=== PATIENT | male | born 1970 | race Caucasian/White ===

== ENCOUNTER 2020-02-13 09:53 | Emergency (ER) | payer MEDICARE, MEDICAID ==
[~2020-02-13] VITALS: Ht 167.6 cm; Wt 55.0 kg
[2020-02-13 10:06] VITALS: BP 157/89
[2020-02-13] MEDS ORDERED: BACITRACIN ZINC OINT UDPKT TOP ONE (10:30)
[2020-02-13] MEDS ORDERED: TETANUS, DIPHTHERIA, PERTUSSIS VAC/PF 0.5ML (>7YR OLD) IM ONE (10:30)
== END 2020-02-13 11:12 | disposition home or self-care (01) ==
LOC: ER 09:53
DX: S01.111A Laceration without foreign body of right eyelid and periocular area, initial encounter (principal); W20.8XXA Other cause of strike by thrown, projected or falling object, initial encounter; Y93.89 Activity, other specified; Y92.018 Other place in single-family (private) house as the place of occurrence of the external cause; N18.6 End stage renal disease; Z99.2 Dependence on renal dialysis; Z23 Encounter for immunization
CPT/HCPCS: 90471; 90715; 99283

== ENCOUNTER 2020-02-18 15:35 | Emergency (ER) | payer MEDICARE, MEDICAID ==
[~2020-02-18] VITALS: Ht 170.2 cm; Wt 78.0 kg
[2020-02-18 16:59] LABS: BASOPHILS % 1.2 % (0.0-2.0); EOSINOPHILS % 5.6 % (0.0-5.0); HEMATOCRIT. 41.6 % (42.0-52.0); HEMOGLOBIN. 14.7 g/dL (14.0-18.0); LYMPHOCYTES % 18.1 % (20.0-50.0); MEAN CORPUSCULAR VOLUME 90.6 fL (80.0-94.0); MEAN PLATELET VOLUME 8.9 fl (7.4-10.4); MONOCYTES % 9.5 % (2.0-8.0); NEUTROPHILS % 65.6 % (40.0-76.0); PLATELET 157 x1000/uL (130-400); RED BLOOD CELL COUNT 4.59 mill/uL (4.7-6.1); RED CELL DISTRIBUTION WIDTH 13.9 % (11.6-14.6)
[2020-02-18 17:13] LABS: CHLORIDE 97 mEq/L (98-107)
[2020-02-18 19:37] VITALS: BP 165/96
== END 2020-02-18 19:39 | disposition home or self-care (01) ==
LOC: ER 15:35
DX: R60.0 Localized edema (principal); I12.0 Hypertensive chronic kidney disease with stage 5 chronic kidney disease or end stage renal disease; N18.6 End stage renal disease; Z99.2 Dependence on renal dialysis
CPT/HCPCS: 36415; 80053; 83605; 85025; 93005; 93922; 93971; 99285

== ENCOUNTER 2020-03-14 08:40 | Inpatient (IN) | payer MEDICARE, MEDICAID ==
[~2020-03-14] VITALS: Ht 167.6 cm; Wt 77.6 kg
[2020-03-14] MEDS ORDERED: SODIUM CHLORIDE 0.9% 500 ML IV ONE (09:00)
[2020-03-14 09:19] LABS: CHLORIDE 95 mEq/L (98-107)
[2020-03-14 09:23] LABS: BASOPHILS % 0.5 % (0.0-2.0); EOSINOPHILS % 3.2 % (0.0-5.0); HEMATOCRIT. 40.9 % (42.0-52.0); HEMOGLOBIN. 14.2 g/dL (14.0-18.0); LYMPHOCYTES % 12.3 % (20.0-50.0); MEAN CORPUSCULAR HEMOGLOBIN 30.9 pg (28.0-32.0); MEAN CORPUSCULAR VOLUME 88.6 fL (80.0-94.0); MONOCYTES % 9.7 % (2.0-8.0); NEUTROPHILS % 74.3 % (40.0-76.0); PLATELET 135 x1000/uL (130-400); RED BLOOD CELL COUNT 4.61 mill/uL (4.7-6.1); RED CELL DISTRIBUTION WIDTH 13.8 % (11.6-14.6)
[2020-03-14] MEDS ORDERED: LEVOFLOXACIN 750MG PREMIX 150 ML IV ONE (11:45)
[2020-03-14 12:45] VITALS: BP 169/105
[2020-03-14] MEDS ORDERED: IPRATROPIUM/ALBUTEROL 0.5-3(2.5)MG/3ML NEB HHN PRN (13:15)
[2020-03-14] MEDS ORDERED: ACETAMINOPHEN 325MG TABLET PO PRN (13:15)
[2020-03-14] MEDS ORDERED: ONDANSETRON HCL 4MG/2ML INJ IV PRN (13:15)
[2020-03-14] MEDS ORDERED: CLONIDINE 0.1MG TABLET PO PRN (13:15)
[2020-03-14] MEDS ORDERED: CALC667T6 MT (13:29)
[2020-03-14] MEDS ORDERED: NIFE-33 PO (13:29)
[2020-03-14] MEDS ORDERED: CARV12.545 PO (13:29)
[2020-03-14] MEDS: NICOTINE 7MG PATCH TD SCH (14:22)
[2020-03-14] MEDS: NIFEDIPINE XL 60MG TAB PO SCH (14:23)
[2020-03-14 16:00] VITALS: BP 172/106
[2020-03-14] MEDS: AZITHROMYCIN 500 MG TABLET PO SCH (16:45)
[2020-03-14] MEDS: LOSARTAN POTASSIUM 50 MG TABLET PO SCH (16:45)
[2020-03-14] MEDS ORDERED: CEFTRIAXONE 1,000 MG in DEXTROSE 5% WATER 50 ML IV SCH (17:00)
[2020-03-14] MEDS ORDERED: PNEUMOCOCCAL 23-VAL P-SAC VAC 0.5 ML IM ONE (19:00)
[2020-03-14 20:00] VITALS: BP 131/74
[2020-03-15] VITALS: BP 135/83
[2020-03-15] MEDS ORDERED: PNEUMOCOCCAL 23-VAL P-SAC VAC 0.5 ML IM ONE (01:00)
[2020-03-15 04:00] VITALS: BP 133/79
[2020-03-15 07:30] LABS: BASOPHILS % 0.8 % (0.0-2.0); EOSINOPHILS % 5.1 % (0.0-5.0); HEMATOCRIT. 34.4 % (42.0-52.0); HEMOGLOBIN. 12.1 g/dL (14.0-18.0); LYMPHOCYTES % 20.8 % (20.0-50.0); MEAN CORPUSCULAR VOLUME 87.8 fL (80.0-94.0); MEAN PLATELET VOLUME 7.8 fl (7.4-10.4); MONOCYTES % 11.4 % (2.0-8.0); NEUTROPHILS % 61.9 % (40.0-76.0); PLATELET 131 x1000/uL (130-400); RED BLOOD CELL COUNT 3.91 mill/uL (4.7-6.1); RED CELL DISTRIBUTION WIDTH 13.7 % (11.6-14.6)
[2020-03-15 08:00] VITALS: BP 140/87
[2020-03-15] MEDS: NICOTINE 7MG PATCH TD SCH (09:22)
[2020-03-15] MEDS: NIFEDIPINE XL 60MG TAB PO SCH (09:23)
[2020-03-15] MEDS: AZITHROMYCIN 500 MG TABLET PO SCH (09:23)
[2020-03-15] MEDS: LOSARTAN POTASSIUM 50 MG TABLET PO SCH (09:23)
[2020-03-15 12:00] VITALS: BP 134/84
[2020-03-15] MEDS ORDERED: LEVO500T2 MT (14:06)
[2020-03-15] MEDS ORDERED: NICO-786 TD (14:06)
[2020-03-15 15:22] VITALS: BP 134/84
[2020-03-15 16:00] VITALS: BP 135/86
== END 2020-03-15 16:50 | disposition home or self-care (01) | DRG 193 ==
LOC: ER 08:40 → 5WST 11:39 → EDBEDREQTM 11:41 → EDBEDREQ 11:41 → ENRESERV 12:13 → ER 12:34
PROVIDERS: ADMIT Internal Medicine; ATTEND Internal Medicine
DX: J18.9 Pneumonia, unspecified organism (principal); N18.6 End stage renal disease; E87.1 Hypo-osmolality and hyponatremia; I12.0 Hypertensive chronic kidney disease with stage 5 chronic kidney disease or end stage renal disease; I16.0 Hypertensive urgency; F17.210 Nicotine dependence, cigarettes, uncomplicated; E87.6 Hypokalemia; E87.8 Other disorders of electrolyte and fluid balance, not elsewhere classified; E11.22 Type 2 diabetes mellitus with diabetic chronic kidney disease; D64.9 Anemia, unspecified; Z99.2 Dependence on renal dialysis
CPT/HCPCS: 36415; 71045; 80048; 80053; 83880; 84484; 85025; 90732; 93005; 99285; J0696; J1956; J7040; J7060

== ENCOUNTER 2021-06-02 12:39 | Emergency (ER) | payer MEDICARE, MEDICAID ==
[~2021-06-02] VITALS: Ht 167.6 cm; Wt 75.0 kg
[~2021-06-02 12:39] MED LIST: CALC667T6 MT; CARV12.545 PO; LEVO500T2 MT; NICO-786 TD; NIFE-33 PO
[2021-06-02 16:22] VITALS: BP 145/73
== END 2021-06-02 16:23 | disposition home or self-care (01) ==
LOC: ER 12:39
DX: J06.9 Acute upper respiratory infection, unspecified (principal); I10 Essential (primary) hypertension; Z20.822 Contact with and (suspected) exposure to COVID-19; Z88.1 Allergy status to other antibiotic agents; Z98.890 Other specified postprocedural states
CPT/HCPCS: 99283; C9803; U0003; U0005